=== PATIENT | male | born 1955 ===

== ENCOUNTER 2023-06-20 06:19 | Day surgery (SDC) | payer OTHER ==
[2023-06-16 14:38] VITALS: BMI 26.4
[2023-06-20] MEDS ORDERED: PROPOFOL 40 ML ONE (08:34)
[2023-06-20] MEDS ORDERED: Lidocaine 2% MPF 10 ML AMP (For Epidural Use) ONE (08:42)
== END 2023-06-20 09:31 | disposition home or self-care (01) ==
LOC: CSHSDC 06:19
PROVIDERS: ATTEND Internal Medicine Gastroenterology
PROC: 0DJD8ZZ Inspection of Lower Intestinal Tract, Via Natural or Artificial Opening Endoscopic (ICD-10-PCS; principal; 2023-06-20)
DX: Z12.11 Encounter for screening for malignant neoplasm of colon (principal); K64.8 Other hemorrhoids; K57.30 Diverticulosis of large intestine without perforation or abscess without bleeding; Z88.1 Allergy status to other antibiotic agents; Z86.010 Personal history of colon polyps; Z95.1 Presence of aortocoronary bypass graft
CPT/HCPCS: J2704